=== PATIENT | female | born 2000 | race Caucasian/White ===

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

== ENCOUNTER 2018-06-17 04:59 | Observation (INO) | payer SELFPAY ==
[~2018-06-17] VITALS: Ht 160 cm; Wt 68.0 kg
[2018-06-17] VITALS (159 sets, daily range): BP systolic 126; BP diastolic 68–83; PULSE 85–87; TEMP 97.9; O2SAT 95–99
[~2018-06-17 04:59] MED LIST: CEPHALEXIN500 M1 PO; FLAGYL500 MG PO; PROZAC 10MG10 MG
[2018-06-17 05:35] LABS: BASO % 0.5 % (0.0-2.0); EOS # 0.2 (0.0-0.7); EOS % 2.6 % (0-4.0); GRAN # 3.8 (1.4-6.5); HEMATOCRIT 45.4 % (35.0-45.0); HEMOGLOBIN 15.3 g/dl (12.0-15.0); LYMPH # 2.8 (1.2-3.4); LYMPH % 38.5 % (20.0-51.0); MEAN CELL VOLUME 87 fl (80.0-95.0); MEAN CORPUSCULAR HEMOGLOBIN 29 pg (26.0-32.0); MEAN CORPUSCULAR HGB CONC 34 g/dl (33.0-37.0); MEAN PLATELET VOLUME 10.7 fl (7.4-10.4); MONO # 0.5 (0.1-0.6); MONO % 6.1 % (1.7-9.3); PLATELET COUNT 240 K/mm3 (130-400); RED BLOOD COUNT 5.23 M/mm3 (4.10-5.30)
[2018-06-17 05:36] LABS: COLLECTION METHOD CLEAN CATCH
[2018-06-17 05:46] LABS: PH 6 (5-8); SQUAMOUS EPITHELIAL None Seen /hpf; URINE APPEARANCE Clear; URINE BACTERIA None Seen /hpf; URINE BILIRUBIN Negative (NEGATIVE); URINE BLOOD Negative (NEGATIVE); URINE COLOR Straw; URINE GLUCOSE Negative (NEGATIVE); URINE KETONE Negative (NEGATIVE); URINE LEUKOCYTE ESTERASE Negative (NEGATIVE); URINE NITRATE Negative (NEGATIVE); URINE PROTEIN(semi-quant) Negative (NEGATIVE); URINE RBC 0-2 /hpf; URINE UROBILINOGEN Negative (NEGATIVE)
[2018-06-17 05:47] LABS: ALANINE AMINOTRANSFERASE 18 U/L (9-52); ALBUMIN 4.3 gm/dL (3.5-5.0); ALCOHOL(ethanol),MEDICAL 96 mg/dL; ALKALINE PHOSPHATASE 78 U/L (50-136); ANION GAP 12 mmol/L (7-16); AST,SGOT 23 U/L (15-37); BILIRUBIN,TOTAL 0.4 mg/dL (0.0-1.0); BLOOD UREA NITROGEN 12 mg/dL (7-17); CALCIUM 9.2 mg/dL (8.4-10.2); CARBON DIOXIDE 21 mmol/L (22-30); CHLORIDE 110 mmol/L (98-107); CREATININE, serum 0.66 mg/dL (0.52-1.25); GLUCOSE 83 mg/dL (74-106); POTASSIUM 3.8 mmol/L (3.4-5.0); SODIUM 144 mmol/L (137-145); TOTAL PROTEIN 8.2 gm/dL (6.4-8.2)
[2018-06-17 05:49] LABS: TRICYCLIC ANTIDEPRESS URINE NEGATIVE
[2018-06-17] MEDS ORDERED: MOTRIN 800800 MG/TAB PO (05:49)
[2018-06-17 05:50] LABS: ACETAMINOPHEN < 10 ug/mL (10-30); SALICYLATE < 1.0 mg/dL
[2018-06-17 07:20] LABS: ARTERIAL BLD GAS O2 SATURATION 96.3 % (92-100); ARTERIAL BLD GAS TCO2 CT 21.9; ARTERIAL BLOOD GAS BASE EXCESS -4.4 (-2-2); ARTERIAL BLOOD GAS HCO3 20.7 meq/L (22-26); ARTERIAL BLOOD GAS PCO2 38.5 mmHg (35-45); ARTERIAL BLOOD GAS PO2 90.6 mmHg (80-100); ARTERIAL BLOOD GAS pH 7.35 (7.35-7.45)
[2018-06-17 10:44] LABS: CALCIUM 8.1 mg/dL (8.4-10.2); CREATININE, serum 0.59 mg/dL (0.52-1.25)
--- NOTE | 2018-06-17 13:00 | NUR ---
PATIENT ARRIVES TO ICU. SHE IS DROWSY, BUT RESPONDS APPROPRIATELY. VS WNL. ASSESSMENT COMPLETED. WILL CONTINUE TO MONITOR.
--- NOTE | 2018-06-17 14:42 | NUR ---
Referral for Finances: Recieved reff for finances, called Jennifer Swenson to make reports to assist. Gave rep phone number. Patient indicated that she has a means to pay for medications and uses [employer]. NO PCP is a [employer] student.
[2018-06-17 14:55] LABS: THYROID STIMULATING HORMONE 1.1 uIU/mL (0.465-4.680)
[2018-06-17 15:07] LABS: MAGNESIUM 1.9 mg/dL (1.6-2.3); PHOSPHOROUS 2.4 mg/dL (2.5-4.5)
[2018-06-17 16:50] LABS: CALCIUM 8.4 mg/dL (8.4-10.2); CREATININE, serum 0.62 mg/dL (0.52-1.25); POTASSIUM 3.9 mmol/L (3.4-5.0)
--- NOTE | 2018-06-17 17:28 | NUR ---
PATIENT REQUESTS TO BE DISCHARGED. CALL PLACED TO DR. ACOSTA. HE ORDERS ANOTHER EKG, THEN HE WILL PROBABLY PLACE DISCHARGE ORDERS.
--- NOTE | 2018-06-17 18:08 | NUR ---
DISCHARGE INSTRUCTIONS REVEIWED WITH PATIENT. SHE VERBALIZES UNDERSTANDING. I STRESS THE IMPORTANCE OF FOLLOWING UP WITH PCP AND UTILIZING [employer] [facility]. I ALSO STRESSED THE IMPORTANCE OF NOT TAKING OVER THE RECOMMENDED AMOUNT OF OTC MEDS. SHE IS INSTRUCTED TO READ THE BOX AND ONLY TAKE THE RECOMMENDED AMOUNT IF SHE FEELS THE NEED TO TAKE OTC MEDS. PATIENT ALSO EDUCATED ON APPROPRIATE ALCOHOL CONSUMPTION AND EDUCATIONAL HANDOUT INCLUDED IN DISCHARGE PACKET. IV DISCONTINUED AND PATIENT AMBULATES OUT ED ENTRANCES WITH FRIEND AND THIS RN.
== END 2018-06-17 18:00 | disposition home or self-care (01) ==
LOC: COL.ER 04:59 → ICU 11:01
PROVIDERS: Emergency Medicine; ADMIT Hospitalist
DX: T39.312A Poisoning by propionic acid derivatives, intentional self-harm, initial encounter (principal); F32.9 Major depressive disorder, single episode, unspecified; F41.9 Anxiety disorder, unspecified; E87.2 Acidosis; F10.129 Alcohol abuse with intoxication, unspecified
CPT/HCPCS: C9113; J2405; J2550; J7030

== ENCOUNTER 2019-05-05 11:58 | Outpatient (CLI) | payer MEDICAID ==
[~2019-05-05] VITALS: Ht 160 cm; Wt 69.1 kg
[~2019-05-05 11:58] MED LIST changes: +MOTRIN 800800 MG/TAB PO
--- NOTE | 2019-05-05 12:05 | NUR ---
1205- Patient arrives ambulatory with FOB with complaints of leaking of amniotic fluid. Patient states she noted "a big gush on around 2129 and some occasional leaking ever since. I have been gushing fluid on and off since 1100 today." Patient denies vaginal bleeding, contractions, or cramping. Reports normal movement. Patient changes into gown, EFM explained and placed. Moderate amount of clear fluid noted on floor after ambulating to bed. VS obtained. 1210- Amniotrace positive. SVE by this RN 2-3/-1 with small amount of clear fluid noted on exam. Fluid on exam glove swabbed with Amniotrace, also noted positive. Patient repositiong WL and updated on plan of care. Assessment completed. 1217- Dr. Saleem notified via telephone. Notified of patient arrival and complaint of SROM, possibly on evening. Reviewed records and history. Reviewed SVE and Amniotrace results. Reviewed FHR strip and contraction pattern. Patient denies feeling contractions or cramping at this time. Orders to start IV site and infuse LR at 125 ml/hr. Orders for Betamethasone recieved. 1225- IV started by Murray gipson RN. LR infusing per order. 1228- Bethamethasone given per order, See EMAR. 1235- Dr. Saleem at bedside. Vertex presentation confirmed via bedside ultrasound. Discussing plan of care for transfer to [facility] with patient. Orders for Ampicillin 2G now recieved. See physician documentation.
[2019-05-05 12:30] VITALS: TEMP 98.2
--- NOTE | 2019-05-05 12:45 | NUR ---
orders for Magnesium Sulfate received. See physician documentation and EMAR. Second IV site started in right hand by Murray Luz RN.
[2019-05-05 13:00] VITALS: BP 118/73; PULSE 109
--- NOTE | 2019-05-05 13:07 | NUR ---
1245- Ampicillin 2 G infusing per order. See EMAR. 1307- Magnesium Sulfate bolus infusing per order after two RN safety check. SPO2 monitor applied. See EMAR. 1312- Cornejo catheter placed for accurate I&O measurement by Murray Luz RN. 1315- Emesis noted. 1325- Azithromax infusing per order, see EMAR. 1326- Magnesium Sulfate infusing per protocol after [address] Saleem at bedside, patient denies need for nausea medication at this time.
[2019-05-05 13:15] VITALS: PULSE 112
[2019-05-05 13:30] VITALS: BP 107/69; PULSE 99
--- NOTE | 2019-05-05 13:40 | NUR ---
Report to EMS and patient transferred off unit escorted by EMS personnel.
--- NOTE | 2019-05-05 14:12 | NUR ---
Report to KATHERINE Biswas at [facility].
== END 2019-05-05 13:40 | disposition short-term general hospital (02) ==
LOC: LDRO 11:58 → LDR 12:05 → LDRO 13:40
DX: O42.913 Preterm premature rupture of membranes, unspecified as to length of time between rupture and onset of labor, third trimester (principal); Z3A.33 33 weeks gestation of pregnancy
CPT/HCPCS: OP; J0290; J0456; J0702; J3475; J7050; J7120